=== PATIENT | female | born 1995 | race African-American/Black ===

== ENCOUNTER 2019-10-16 23:31 | Emergency (ER) | payer BC, SELFPAY ==
[2019-10-17] MEDS ORDERED: Dexamethasone 10 MG/ML VIAL ONE (00:29)
[2019-10-17] MEDS ORDERED: diphenhydrAMINE 50 MG/ML VIAL ONE (00:29)
== END 2019-10-17 00:39 | disposition home or self-care (01) ==
LOC: ERS 23:31
DX: L29.9 Pruritus, unspecified (principal)
CPT/HCPCS: 96372; 99282; J1100; J1200